=== PATIENT | female | born 1960 | race Caucasian/White ===

== ENCOUNTER 2025-02-18 08:09 | Outpatient (CLI) | payer MEDICARE | END 2025-02-18 08:10 | disposition home or self-care (01) | LOC: CSHULT 08:09 | PROVIDERS: ATTEND Family Medicine | DX: R10.13 Epigastric pain (principal); K76.0 Fatty (change of) liver, not elsewhere classified; N28.1 Cyst of kidney, acquired | CPT/HCPCS: 76700 ==